=== PATIENT | female | born 1975 | race Caucasian/White ===

== ENCOUNTER 2018-12-13 13:35 | Emergency (ER) | payer OTHER ==
[2018-12-13 13:42] VITALS: BP 146/93
[2018-12-13] MEDS ORDERED: DIPH/PERTUSS(ACELL)/TETANUS VAC/PF 0.5 ML SYR (>=10YO) IM ONE (14:03)
--- NOTE | 2018-12-13 14:06 | ER Document Report ---
HPI - HPI Time Seen by Provider: 12/13/18 13:58 Pain Level: 2 Context: Patient is a 43-year-old female presents to the emergency department with a chief complaint of puncture wound. Patient states earlier this morning as she was getting out of a kayak with her bare feet and stepped on a mila nail. Patient is unsure if she has parts of the nail in her foot. Patient states her tetanus shot is not up-to-date. Patient reports she was not wearing shoes. Patient states she is not a diabetic. - CONSTITUTIONAL Constitutional: DENIES: Fever, Chills - EENT EENT: DENIES: Sore Throat, Ear Pain, Eye problems - NEURO Neurology: DENIES: Headache, Weakness, Vision blurred, Dizzinesss / Vertigo - CARDIOVASCULAR Cardiovascular: DENIES: Chest pain - RESPIRATORY Respiratory: DENIES: Trouble Breathing, Coughing - GASTROINTESTINAL Gastrointestinal: DENIES: Abdominal Pain, Black / Bloody Stools - URINARY Urinary: DENIES: Dysuria, Urgency, Frequency - REPRODUCTIVE Reproductive: DENIES: : - MUSCULOSKELETAL Musculoskeletal: REPORTS: Extremity pain - left foot Past Medical History - General Information source: Patient - Social History Smoking Status: Never Smoker Chew tobacco use (# tins/day): No Frequency of alcohol use: None Drug Abuse: None Lives with: Family Family History: None Patient has suicidal ideation: No Patient has homicidal ideation: No - Past Medical History Cardiac Medical History: Reports: Hx Atrial Fibrillation Pulmonary Medical History: Reports: None EENT Medical History: Reports: None Neurological Medical History: Reports: None Endocrine Medical History: Reports: None Renal/ Medical History: Reports: None. Denies: Hx Peritoneal Dialysis Malignancy Medical History: Reports: None GI Medical History: Reports: None Musculoskeletal Medical History: Reports None Skin Medical History: Reports None Psychiatric Medical History: Reports: Hx Attention Deficit Hyperactivity Disorder - adderall Traumatic Medical History: Reports: None Infectious Medical History: Reports: None Past Surgical History: Reports: Hx Cardiac Catheterization - correction for afib., Hx Section Vertical Provider Document - CONSTITUTIONAL Agree With Documented VS: Yes Exam Limitations: No Limitations General Appearance: No Apparent Distress - INFECTION CONTROL TRAVEL OUTSIDE OF THE [place] IN LAST 30 DAYS: No - HEENT HEENT: Atraumatic, Normocephalic, PERRLA - RESPIRATORY Respiratory: Breath Sounds Normal, No Respiratory Distress - CARDIOVASCULAR Cardiovascular: Regular Rate, Regular Rhythm - GI/ABDOMEN Gastrointestinal: Abdomen Soft, Abdomen Non-Tender, Normal Bowel Sounds - NEURO Level of Consciousness: Awake, Alert, Appropriate - DERM Integumentary: Warm Notes: Puncture wound noted to the plantar aspect of the left foot. There is no active bleeding. The puncture wound appears to be more of a flap. Upon quick visualization I did not see any foreign body. Patient has good flexion- extension of the foot. Patient has a strong posterior tibial and dorsalis pedis pulse with palpation +2. Course - Re-evaluation Re-evalutation: 12/13/18 14:06 We will obtain an x-ray to rule out foreign body. Will update tetanus. Will soak the patient's foot and Betadine. 12/13/18 15:29 After performing a small incision and cleaning. I did discuss with the patient to keep the area clean as much as possible. Patient not to put any medications over the area. Patient will be given doxycycline. I did give the patient doxycycline precautions to include staying out of the sun as this can blister or burn her skin. Patient states she is not currently or breast-feeding. Patient given doxy to cover for the vibrio as the patient reports she was in salt water without a shoe and was barefoot. 12/13/18 16:44 Prior to discharge patient's repeat heart rate was 94. - Vital Signs Vital signs: Temp Pulse Resp BP Pulse Ox 98.0 F 125 H 15 146/93 H 96 12/13/18 13:41 12/13/18 13:41 12/13/18 13:41 12/13/18 13:41 12/13/18 13:41 - Diagnostic Test Radiology reviewed: Reports reviewed Radiology results interpreted by me: 12/13/18 15:30 Foot X-Ray 12/13/18 13:59 IMPRESSION: NO FRACTURE.No radiopaque foreign body. Procedures - Incision and Drainage Left Volar Foot Time completed: 15:00 Type: Simple Anesthetic type: 1% Lidocaine mL's of anesthetic: 2 Blade size: 11 I&D procedure: Betadine prep applied, Shurclens applied Incision Method: Incision made by scalpel Notes: 12/13/18 15:28 Patient had soaked her foot in Betadine for about 30 minutes. I did remove the foot and apply local anesthetic to remove a small piece of the skin flap. The wound was irrigated with 250 mL's of saline with a syringe. The wound does appear to be superficial and mostly underneath the skin flap. We will I did irrigate the wound and cleanse the wound for about 15 minutes. Discharge - Discharge Clinical Impression: Puncture wound Condition: Stable Disposition: HOME, SELF-CARE Instructions: Prophylactic Antibiotic ([facility]), Soap Cleansing ([facility]), Tetanus Immunization Given ([facility]) Additional Instructions: Today you are seen in the emergency department for a puncture wound. We did obtain an x-ray which was negative for any foreign body. I did apply a small amount of local anesthetic and remove a small piece of skin so I could irrigate the wound well. Please continue to keep the wound clean and dry. You may put Band-Aid over the area. Until the wound is completely closed and healed do not get in any salt water, pools, Jacuzzis or soak the foot. Doxycycline Doxycycline (Vibramycin, Doryx) is an antibiotic of the tetracycline family. This type of drug is useful for infections of the respiratory tract and genital tract, and is sometimes used for intestinal infections. Unlike most tetracyclines, doxycycline can be taken with food. It is longer acting, and (usually) less prone to side effects than regular tetracycline. Tetracycline antibiotics can stain immature teeth and SHOULD NOT BE TAKEN BY CHILDREN, NURSING MOTHERS, OR WOMEN. Tetracyclines can make you more prone to sunburn. Abdominal cramping, nausea, and diarrhea are occasional side effects. Women may experience vaginal yeast infections. Call the doctor at once if you develop hives, itching, shortness of breath, or lightheadedness. Puncture Wound You have a puncture wound. Because these wounds often penetrate deeply beneath the skin, you must observe them carefully for complications. The wound has been examined for retained foreign material and for damage to tendons and nerves. The area should be rested and elevated for 24 hours. Then you can use the injured part -- if moving it is painfree. Punctures of the hand or foot may require splinting or crutches. The dressing should be changed daily until the wound is healed. Watch for signs of infection. Call the doctor immediately if redness, swelling, warmth, increasing pain, or wound drainage occur. If you develop numbness, persistent bleeding, or inability to move the injured area, please return for prompt re-evaluation. Prescriptions: Doxycycline Hyclate 100 mg PO BID 10 Days #20 capsule Referrals: GENEVA NOBLE PA-C [Primary Care Provider] - Follow up as needed
--- NOTE | 2018-12-13 14:41 | RADIOLOGY REPORT (SQ) ---
EXAM DESCRIPTION: FOOT LEFT COMPLETE COMPLETED DATE/TIME: 12/13/2018 2:27 pm REASON FOR STUDY: puncture wound COMPARISON: None. EXAM PARAMETERS: NUMBER OF VIEWS: Three views. TECHNIQUE: AP, lateral and oblique radiographic images acquired of the left foot. LIMITATIONS: None. FINDINGS: MINERALIZATION: Normal. BONES: No acute fracture or dislocation. No worrisome bone lesions. JOINTS: No effusion. SOFT TISSUES: No significant soft tissue swelling. No radiopaque foreign body. OTHER: No other significant finding. IMPRESSION: NO FRACTURE.No radiopaque foreign body. TECHNICAL DOCUMENTATION: JOB ID: [id number] [id number] 2010 [employer]- All Rights Reserved Reading location - IP/workstation name: [email or web address]
[2018-12-13] MEDS ORDERED: DOXYCYCLINE HYCLATE 100 MG TABLET PO ONE (15:26)
== END 2018-12-13 15:46 | disposition home or self-care (01) ==
LOC: ER 13:35
PROC: 0H9NXZZ Drainage of Left Foot Skin, External Approach (ICD-10-PCS; principal; 2018-12-13)
DX: S91.332A Puncture wound without foreign body, left foot, initial encounter (principal); W45.0XXA Nail entering through skin, initial encounter
CPT/HCPCS: 90471; 90715; 99283